=== PATIENT | male | born 1965 | race Caucasian/White ===

== ENCOUNTER → 2016-07-08 | Outpatient (CLI) | payer OTHER ==
--- NOTE | 2016-07-08 16:19 | Diagnostic Imaging Report ---
Indication: COUGH Technique: Two views of the chest Comparison: none Findings: There is a calcified granuloma at the left lung base. The lungs and pleural spaces are clear otherwise. The heart size is upper limits of normal. Impression: Evidence of old granulomatous disease. No acute process
== END | disposition home or self-care (01) ==
LOC: RAD 12:14
DX: R05 Cough (principal); R07.89 Other chest pain
CPT/HCPCS: 71020

== ENCOUNTER 2017-12-29 08:43 | Day surgery (SDC) | payer OTHER ==
[~2017-12-29] VITALS: Ht 180.3 cm; Wt 88.5 kg
[2017-12-29] VITALS (9 sets, daily range): BP systolic 112–147; BP diastolic 65–92
--- NOTE | 2017-12-29 09:22 | Pre-Procedure Note/Attestation ---
Pre-Procedure Note/Attestation Complete Prior to Procedure Planned Procedure: not applicable Procedure Narrative: excision of multiple lipoma (left hip, left back, right buttock, left arm) Indications for Procedure Pre-Operative Diagnosis: multiple lipoma (left hip, left back, right buttock, left arm) Attestation I attest that I discussed the nature of the procedure; its benefits; risks and complications; and alternatives (and the risks and benefits of such alternatives ), prior to the procedure, with the patient (or the patient's legal malt liquors sales representative). I attest that, if there was a reasonable possibility of needing a blood transfusion, the patient (or the patient's legal malt liquors sales representative) was given the [place] [employer] standardized written summary, pursuant to the [place] Blood Safety Act ([place] Health and Safety Code # 1645, as amended). I attest that I re-evaluated the patient just prior to the surgery and that there has been no change in the patient's H&P, except as documented below: Asaf Willis Dec 29, 2017 09:22
[2017-12-29] MEDS ORDERED: ceFAZolin sod 2 GM in D5W 110 ML IV ONE (09:30)
[2017-12-29] MEDS ORDERED: ALLOPURINOL300 M1 ORAL (09:44)
[2017-12-29] MEDS ORDERED: TIVICAY50 MG ORAL (09:44)
[2017-12-29] MEDS ORDERED: DILTIAZEM ER120 MG PO (09:44)
[2017-12-29] MEDS ORDERED: PROSCAR5 MG ORAL (09:44)
[2017-12-29] MEDS ORDERED: ATORVASTATIN CA40 MG ORAL (09:44)
[2017-12-29] MEDS ORDERED: LISINOPRIL20 MG ORAL (09:44)
[2017-12-29] MEDS ORDERED: DESCOVY PO (09:44)
[2017-12-29] MEDS ORDERED: Lidocaine 1% 10mg/ml/EPI 0.01mg/ml 50ml INJ ONE (10:37)
[2017-12-29] MEDS ORDERED: Lidocaine 1% MPF 10mg/ml 5ml ONE ×2 (11:00→11:34)
[2017-12-29] MEDS ORDERED: Propofol 200mg/20ml IV ONE ×2 (11:00→11:34)
--- NOTE | 2017-12-29 11:21 | Immediate Post-Op Evaluation ---
Immediate Post-Op Evalulation Immediate Post-Op Evalulation Procedure: Excision of lipomas on back Date of Evaluation: Dec 29, 2017 Time of Evaluation: 13:23 IV Fluids: 500 Blood Pressure Systolic: 112 Blood Pressure Diastolic: 65 Pulse Rate: 65 Respiratory Rate: 11 O2 Sat by Pulse Oximetry: 96 Temperature (Fahrenheit): 97.5 Pain Score (1-10): 0 Nausea: No Vomiting: No Complications No complication Patient Status: awake, patent, none Hydration Status: adequate Drug: Ancef Given Within 1 Hr of Incision: Yes Time Given: 12:10 Mt Bustillo MD Dec 29, 2017 11:21
--- NOTE | 2017-12-29 11:21 | Anethesia Preoperative Eval ---
Anesthesia Pre-op PMH/ROS General Date of Evaluation: Dec 29, 2017 Time of Evaluation: 10:31 Anesthesiologist: Iwona ASA Score: ASA 3 Mallampati Score Class I : Soft palate, uvula, fauces, pillars visible Class II: Soft palate, uvula, fauces visible Class III: Soft palate, base of uvula visible Class IV: Only hard plate visible Mallampati Classification: Class II Surgeon: Lazaro Diagnosis: Lipoma on back Surgical Procedure: Excision of lipoma Family History: no anesthesia problems Allergies: Coded Allergies: No Known Allergies (Verified , 12/29/17) Medications: see eMAR Patient NPO?: Yes NPO Date: Dec 28, 2017 NPO Time: 21:00 Past Medical History Cardiovascular: Reports: HTN; Denies: CAD, IA, valve dz, arrhythmia, other Pulmonary: Denies: asthma, COPD, MICHELLE, other Gastrointestinal/Genitourinary: Denies: GERD, CRI, ESRD, other Neurologic/Psychiatric: Denies: dementia, CVA, depression/anxiety, TIA, other Endocrine: Denies: DM, hypothyroidism, steroids, other HEENT: Denies: cataract (L), cataract (R), glaucoma, [place] (L), [place] (R), other Hematology/Immune: Denies: anemia, DVT, bleeding disorder, other Musculoskeletal/Integumentary: Denies: OA, RA, DJD, DDD, edema, other PMH Narrative: HTN,HIV Anesthesia Pre-op Phys. Exam Physician Exam Last Vital Signs Date Time Temp Pulse Resp B/P (MAP) Pulse Ox O2 Delivery O2 Flow Rate FiO2 12/29/17 09:47 98.2 58 18 147/92 96 Room Air 98.2 Constitutional: NAD Neurologic: CN 2-12 intact Cardiovascular: RRR, no M/R/G Gastrointestinal: S/NT/ND Airway Exam Mallampati Score: Class II MO: full ROM: full Teeth: intact Anesthesia Pre-op A/P Risk Assessment & Plan Assessment: HTN, HIV Plan: MAC Status Change Before Surgery: No Pre-Antibiotics Drug: Ancef Given Within 1 Hr of Incision: Yes Time Given: 12:10 Mt Bustillo MD Dec 29, 2017 11:20
[2017-12-29] MEDS ORDERED: Hydromorphone 0.5mg/0.5ml inj IVP PRN (11:30)
[2017-12-29] MEDS ORDERED: Midazolam 2mg/2ml Inj ONE (11:33)
[2017-12-29] MEDS ORDERED: fentaNYL 100 mcg/2 mL IV ONE (11:33)
[2017-12-29] MEDS ORDERED: LR 1000ml ONE (12:00)
[2017-12-29] MEDS ORDERED: NS Irrig 1000ml ONE (12:00)
[2017-12-29] MEDS ORDERED: Sterile Water Irrig 1000ml IRRIG ONE (12:00)
--- NOTE | 2017-12-29 13:17 | 48 Hour Post Anesthesia Eval ---
Post Anesthesia Evaluation Procedure: Excision of lipomas on back Date of Evaluation: Dec 29, 2017 Time of Evaluation: 13:40 Pulse Rate: 64 Respiratory Rate: 14 O2 Sat by Pulse Oximetry: 95 Airway: patent Nausea: No Vomiting: No Pain Intensity: 0 Hydration Status: adequate Cardiopulmonary Status: Stable Mental Status/LOC: patient returned to baseline Follow-up Care/Observations: As per surgery Post-Anesthesia Complications: No anesthetic complication Follow-up care needed: N/A Mt Bustillo MD Dec 29, 2017 13:17
--- NOTE | 2017-12-29 14:23 | Brief Operative Note ---
Immediate Post Operative Note Operative Note Pre-op Diagnosis: multiple lipoma (left hip, left back, right buttock, left arm) Procedure: excision of multiple lipoma : see list adjacent tissue transfer for closure Post-op Diagnosis: same as pre-op Surgeon: aubrey Anesthesiologist: jocelin Anesthesia: local, moderate sedation Specimen: yes Complications: none Condition: stable Fluids: see records Estimated Blood Loss: minimal Drains: none Implant(s) used?: No Asaf Willis Dec 29, 2017 14:23
[2017-12-29] MEDS ORDERED: D5 1/2NS 1,000 ML IV SCH (19:01)
[2017-12-29] MEDS ORDERED: HYDROmorphone 1mg/ml Carpuject SUBQ PRN (19:01)
[2017-12-29] MEDS ORDERED: Tylenol #3 tab (300mg/30mg) ORAL PRN (19:01)
[2017-12-29] MEDS ORDERED: Norco 5mg/325mg tab ORAL PRN (19:01)
--- NOTE | 2017-12-30 03:00 | Operative Note - Dictated ---
PREOPERATIVE DIAGNOSIS: Multiple lipomas including in the left hip, left back, right buttock, and left arm. PROCEDURE: 1. Excision of left upper trunk 2 cm lipoma. 2. Excision of left lower trunk 2 cm lipoma. 3. Excision of right buttock lateral 1 cm lipoma. 4. Excision of right buttock middle 1 cm lipoma. 5. Excision of right buttock medial 2 cm lipoma. 6. Excision of 4 cm left hip lipoma with adjacent tissue transfer for closure. 7. Excision of left upper arm 1 cm lipoma. POSTOPERATIVE DIAGNOSES: 1. Left upper trunk 2 cm lipoma. 2. Left lower trunk 2 cm lipoma. 3. Right buttock lateral 1 cm lipoma. 4. Right buttock middle 1 cm lipoma. 5. Right buttock medial 2 cm lipoma. 6. Left hip 4 cm lipoma. 7. Left upper arm 1 cm lipoma. ATTENDING SURGEON: Asaf Willis M.D. [employer]ION [employer]URE [employer]ER[employer] OPERATOR: None. ANESTHESIOLOGIST: Dr. Mt Bustillo. ANESTHESIA: Moderate sedation plus local anesthetic. SPECIMENS: 1. Left upper trunk lipoma. 2. Left lower trunk lipoma. 3. Right buttock lateral lipoma. 4. Right buttock middle lipoma. 5. Right buttock medial lipoma. 6. Left hip lipoma. 7. Left arm lipoma. COMPLICATIONS: None. CONDITION: Stable. FLUIDS: Please see anesthesia records. ESTIMATED BLOOD LOSS: Minimal. DRAINS: None. IMPLANTS: None. COUNT: Sponge and needle count correct x2. WOUND CLASSIFICATION: Class I. ANTIBIOTICS: A 2 g Ancef IV given one hour prior to cut time. INDICATIONS FOR PROCEDURE: This is a 52-year-old male who was referred to and seen in Dr. Willis's office for evaluation of multiple lipomas. The patient states that in the past, he has had a lipoma which was excised and since has noted multiple other lipomas, which are growing and causing him discomfort. In final evaluation of the patient, he had a total of approximately 7 lipomas as noted above in the procedure, specimens, and postoperative diagnoses. On examination, multiple of these mobile lipomas were identified and given these findings, enlarging size, and being symptomatic, excision was recommended and indicated. Risks, benefits, and alternatives were discussed with the patient in detail, who expressed understanding and consented to surgery. OPERATIVE NOTE: The patient was taken to the operative room and placed on the operating table in prone position with bilateral arms out. All bony prominences were well padded with GelPads. SCDs were placed. Preoperative time-out was taken identifying the patient, procedure, operative site, surgical staff. One hour prior to cut time, 2 g Ancef IV was given. All the anticipated surgical sites were prepped and draped in standard surgical fashion. We began by identifying the two left trunk lipomas and began with the left upper trunk lipoma which was identified, palpated, and priorly marked. The site was prepped with chlorhexidine and draped off. Following this, local anesthetic of 1% lidocaine with epinephrine was infiltrated in the proposed skin incision. Skin incision was made using a fresh #15 scalpel and carried down through the dermis. Electrocautery was then used for hemostasis. Once through the dermis, the lipoma was identified and grasped with an Allis. The lipoma was then circumferentially dissected out and the base divided and feeding vessels ligated with electrocautery. The lipoma once circumferentially dissected out was sent to pathology for review. Following this, the wound was irrigated and the skin incision irrigated. Hemostasis was achieved with electrocautery and the skin incision closed in a two-layer fashion beginning with a 3-0 Vicryl subcutaneous interrupted suture followed by 4-0 Monocryl subcuticular interrupted sutures. Following this, attention was turned to the left lower trunk lipoma wherein in a similar fashion, excision was performed without complication. The specimen was sent to pathology. At this time, we turned our attention to the right buttock where 3 palpable tender lipomas were noted. The area was prepped and draped in standard surgical fashion, and local anesthetic was infiltrated in all prior marked incision sites. Using a fresh #15 scalpel, incisions were made over all 3 lipomas and they were excised in a similar fashion as above, circumferentially with electrocautery with ligating and dividing vessels with electrocautery as well. The wounds were cleansed and in a similar fashion, closed in two-layer fashion beginning with 3-0 Vicryl subcutaneous interrupted suture followed by 4-0 Monocryl subcuticular suture. Following this, attention was turned to the left hip lipoma, which was the largest of the wall and overlying an area of the left hip which caused discomfort when the patient wore his pants. The area was prepped and draped in standard surgical fashion followed by infiltration of lidocaine in the proposed skin incision. A skin incision made using a fresh #15 scalpel and carried down to the lipoma which was dissected out circumferentially and its vessels divided with electrocautery. The lipoma was sent to pathology for review. In this area given the location and the size of the lipoma, decision was made to proceed with an adjacent tissue transfer for a more appropriate cosmetic complex closure given location, prior symptoms, size of the lipoma, and the patient's thin body habitus. Subcutaneous tissue in the superomedial aspect was dissected out and a small relaxing incision was made in the fascia. The subcutaneous tissue was then brought together using 3-0 interrupted Vicryl sutures to fill the defect followed by closure of the skin using 4-0 Monocryl subcuticular interrupted sutures. Following this, our attention was turned to the left upper arm lipoma which in a similar fashion was prepped and draped followed by infiltration of local anesthetic and incision with a #15 scalpel and excision of lipoma with circumferential dissecting out with electrocautery followed by hemostasis with electrocautery and closure in a two-layer fashion beginning with 2-0 Vicryl subcutaneous followed by 4-0 Monocryl subcuticular interrupted sutures. Once this was completed, all wounds were cleansed and irrigated and Steri-Strips and skin glue were applied followed by gauze and Tegaderm. The patient tolerated the procedure well and was taken to postanesthetic care unit in stable condition. Asaf Willis M.D. DR: Rajat JOB#: [id number] CC: CHRIS
--- NOTE | 2017-12-31 15:26 | Cardiology Report ---
APPROVED REPORT EKG Measurement Heart [id number] Sinus bradycardia Otherwise normal ECG
== END 2017-12-29 14:25 | disposition home or self-care (01) ==
LOC: SUR 08:43
DX: D17.1 Benign lipomatous neoplasm of skin and subcutaneous tissue of trunk (principal); D17.22 Benign lipomatous neoplasm of skin and subcutaneous tissue of left arm
CPT/HCPCS: 11401; 11402; 11404; 12035; 93005; J0690; J2250; J2704; J3010; 94003; 94150